=== PATIENT | female | born 1985 | race African-American/Black ===

== ENCOUNTER 2018-08-14 13:05 | Emergency (ER) | payer OTHER ==
[2018-08-14 13:09] VITALS: BP 116/85; PULSE 99; TEMP 98.4; BMI 34.3
[2018-08-14 15:03] LABS: BASO % 0.5 % (0-2.0); EOS % 0.2 % (0-4.5); HEMATOCRIT 46.7 % (32.4-45.2); HEMOGLOBIN 15.3 GM/dL (10.7-15.3); LYMPH % 21.4 % (8-40); MCH 31.3 pg (25.7-33.7); MCHC 32.7 g/dl (32.0-36.0); MEAN CELL VOLUME 95.7 fl (80-96); MEAN PLT VOLUME 7.9 fl (7.5-11.1); MONO % 5.1 % (3.8-10.2); NEUT % 72.8 % (42.8-82.8); PLATELET COUNT 256 K/MM3 (134-434); RBC 4.88 M/mm3 (3.60-5.2); RDW 13.9 % (11.6-15.6); WHITE BLOOD COUNT 7.9 K/mm3 (4.0-10.0)
[2018-08-14 15:30] LABS: ALBUMIN 4.1 g/dl (3.4-5.0); ALK PHOS 16 U/L (45-117); ANION GAP 4 MMOL/L (8-16); BILIRUBIN,TOTAL 0.5 mg/dL (0.2-1); BLOOD UREA NITROGEN 7 mg/dL (7-18); CALCIUM 10.2 mg/dL (8.5-10.1); CHLORIDE 109 mmol/L (98-107); CO2 26 mmol/L (21-32); CREATININE 0.7 mg/dL (0.55-1.3); GLUCOSE,RANDOM 96 mg/dL (74-106); POTASSIUM 4.5 mmol/L (3.5-5.1); SGOT/AST 8 U/L (15-37); SGPT/ALT 14 U/L (13-61); SODIUM 138 mmol/L (136-145); TOT PROT 7.6 g/dl (6.4-8.2)
--- NOTE | 2018-08-14 16:55 | PDOC ---
History of Present Illness - General Chief Complaint: Chest Pain Stated Complaint: CHEST PAIN Time Seen by Provider: 08/14/18 14:44 - History of Present Illness Initial Comments: 32-year-old female without significant comorbidities presents for evaluation of chest pain since last night. She describes her pain as sharp without radiation intermittent without any exacerbating or relieving factors. 08/14/18 16:53 Past History - Past Medical History Allergies/Adverse Reactions: Allergies Allergy/AdvReac Type Severity Reaction Status Date / Time No Known Allergies Allergy Verified 08/14/18 13:09 Home Medications: Ambulatory Orders NK [No Known Home Medication] 08/14/18 COPD: No - Suicide/Smoking/Psychosocial Hx Smoking History: Never smoked Review of Systems - Review of Systems Cardiac (ROS): Yes: Chest Pain *Physical Exam - Vital Signs Last Vital Signs Temp Pulse Resp BP Pulse Ox 98.4 F 99 H 18 116/85 98 08/14/18 13:06 08/14/18 13:06 08/14/18 13:06 08/14/18 13:06 08/14/18 13:06 - Physical Exam Comments: 08/14/18 16:53 HEAD: NC/AT EYES: Conjuntiva clear Ears: Canals and TM's normal NOSE: No d/c THROAT: Moist mucous membrances, oral pharanx clear, uvula midline NECK: Supple without adenopathy CARDIAC: S1 S2 LUNGS: CTA Full and Equal breath sounds ABDOMEN: Soft NT ND MS: Full ROM in all joints without edema NEUROLOGIC: No gross sensory or motor deficits, NVID SKIN: Normal color and temperature no lesions or rashes ED Treatment Course - LABORATORY CBC & Chemistry Diagram: 08/14/18 14:56 08/14/18 14:56 - ADDITIONAL ORDERS Additional order review: Laboratory Results 08/14/18 08/14/18 08/14/18 14:56 14:56 14:56 D-Dimer 240 Sodium 138 Potassium 4.5 Chloride 109 H Carbon Dioxide 26 Anion Gap 4 L BUN 7 Creatinine 0.7 Creat Clearance w eGFR > 60 Random Glucose 96 Calcium 10.2 H Total Bilirubin 0.5 AST 8 L ALT 14 Alkaline Phosphatase 16 L Troponin I < 0.02 Total Protein 7.6 Albumin 4.1 08/14/18 14:56 RBC 4.88 MCV 95.7 MCHC 32.7 RDW 13.9 MPV 7.9 Neutrophils % 72.8 Lymphocytes % 21.4 Monocytes % 5.1 Eosinophils % 0.2 Basophils % 0.5 Medical Decision Making - Medical Decision Making EKG shows sinus bradycardia, otherwise normal. There is no tachycardia. D-dimer and troponin are negative. Patient has no risks factors. Most likely costochondral chest pain. Although it is not reproducible at this time. I will have her follow-up with her primary care physician for further evaluation and treatment options. 08/14/18 16:53 *DC/Admit/Observation/Transfer Diagnosis at time of Disposition: Costochondral chest pain - Discharge Dispostion Disposition: HOME Condition at time of disposition: Stable Decision to Admit order: No - Referrals Referrals: [facility] [Non Staff, Medical] - - Patient Instructions Printed Discharge Instructions: DI for Chest Pain, DI for Atypical Chest Pain Additional Instructions: Workup today was normal. Please return to the emergency room should symptoms worsen or go unresolved. May take Tylenol Motrin as directed for pain. Follow- up with the primary care physician I recommended for you in one to 2 days for further evaluation and treatment options. - Post Discharge Activity
[2018-08-14] MEDS ORDERED: diazePAM 5 MG TABLET PO ONE (16:57)
[2018-08-14] MEDS ORDERED: diazePAM 5 MG TABLET ONE (16:58)
--- NOTE | 2018-08-15 13:06 | EKG ---
Test Reason : Blood Pressure : / mmHG Vent. Rate : 080 BPM Atrial Rate : 080 BPM P-R Int : 118 ms QRS Dur : 076 ms QT Int : 364 ms P-R-T Axes : 031 -09 040 degrees QTc Int : 419 ms NORMAL SINUS RHYTHM NORMAL ECG NO PREVIOUS ECGS AVAILABLE Confirmed by MD [facility], AMERICA ([id number]) on 08/15/2018 1:05:29 PM Referred By: Confirmed By:AMERICA COTO MD
--- NOTE | 2018-08-16 15:02 | EKG ---
Test Reason : Blood Pressure : / mmHG Vent. Rate : 058 BPM Atrial Rate : 058 BPM P-R Int : 136 ms QRS Dur : 076 ms QT Int : 402 ms P-R-T Axes : 046 004 041 degrees QTc Int : 394 ms SINUS BRADYCARDIA OTHERWISE NORMAL ECG WHEN COMPARED WITH ECG OF 14-AUG-2018 13:08, NO SIGNIFICANT CHANGE WAS FOUND Confirmed by AMADA PERAZA MD ([id number]) on 08/16/2018 3:02:07 PM Referred By: Confirmed By:AMADA PERAZA MD
== END 2018-08-14 17:00 | disposition home or self-care (01) ==
LOC: JER 13:05 → JERFT 13:05
DX: M94.0 Chondrocostal junction syndrome [Tietze] (principal); F41.0 Panic disorder [episodic paroxysmal anxiety]
CPT/HCPCS: 36415; 80053; 84484; 85025; 85379; 93005; 93010; 99282-25